=== PATIENT | female | born 1935 | race Caucasian/White ===

== ENCOUNTER 2018-09-22 16:39 | Observation (INO) | payer OTHER ==
--- NOTE | 2018-09-22 17:49 | PDOC ---
History of Present Illness - General Chief Complaint: Pain Stated Complaint: JAW PAIN Time Seen by Provider: 09/22/18 17:10 History Source: Patient Exam Limitations: No Limitations - History of Present Illness Initial Comments: 09/22/18 17:43 83 yo female pmh of CABG (2010 at [place]), HLD, aortic sclerosis, CKD stage 3 , DM, TIA, and recently diagnosed gout presents to the ED with left jaw pain. 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 Pt believes pain today is related to starting colchicine. Jaw pain is intermittent described as squeezing sensation lasting less than 5 seconds without radiation and is non exertional. Denies CP, SOB, palpitations, back pain, N/V/F/C, diaphoresis. Pt went to Urgent care today for the left jaw pain and sent to the ED due to significant heart hx. Past History - Past Medical History Allergies/Adverse Reactions: Allergies Allergy/AdvReac Type Severity Reaction Status Date / Time amoxicillin Allergy Verified 09/22/18 16:59 diltiazem Allergy Verified 09/22/18 16:59 fexofenadine [From Martina] Allergy Verified 09/22/18 16:59 loperamide Allergy Verified 09/22/18 16:59 [From Imodium Advanced] nifedipine Allergy Verified 09/22/18 16:59 simethicone Allergy Verified 09/22/18 16:59 [From Imodium Advanced] diabetic tussin Allergy Uncoded 09/22/18 16:59 Home Medications: Ambulatory Orders Amlodipine Besylate [Norvasc -] 5 mg PO DAILY 09/22/18 Aspirin Coated [Ecotrin -] 81 mg PO DAILY 09/22/18 Atorvastatin Ca [Lipitor] 80 mg PO HS 09/22/18 Benazepril HCl [Lotensin] 40 mg PO DAILY 09/22/18 Calcium Carbonate/Vitamin D3 [Calcium 600 + D3 Softgel] 1 each PO BID 09/22/18 Cholecalciferol (Vitamin D3) [Vitamin D3 -] 2,000 unit PO DAILY 09/22/18 Ezetimibe [Zetia -] 10 mg PO DAILY 09/22/18 Flaxseed Oil [Linseed Oil] 1 ml MC AM 09/22/18 Lutein 20 mg PO DAILY 09/22/18 Metoprolol Succinate [Toprol Xl -] 100 mg PO DAILY 09/22/18 Potassium Chloride [Klor-Con 10] 10 meq PO BID 09/22/18 Triamterene/Hydrochlorothiazid [Triamterene-Hctz 37.5-25 mg Cp] 1 each PO DAILY 09/22/18 Cardiac Disorders: Yes (aortic stenosis,carotid stenosis,) COPD: No Diabetes: Yes (no meds) HTN: Yes Other medical history: P.E. 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/06, pulm HTN, - Surgical History Abdominal Surgery: Yes (ventral hernia repair) Cardiac Surgery: Yes (triple bypass 11/29/10) - Suicide/Smoking/Psychosocial Hx Smoking History: Former smoker Have you smoked in the past 12 months: No Information on smoking cessation initiated: No Hx Alcohol Use: No Drug/Substance Use Hx: No Review of Systems - Review of Systems Constitutional: No: Chills, Fever HEENTM: Yes: Other (left jaw pain) Respiratory: No: Shortness of Breath, Wheezing Cardiac (ROS): No: Chest Pain, Lightheadedness, Palpitations, Syncope ABD/GI: No: Constipated, Diarrhea, Nausea, Vomiting : No: Burning, Dysuria, Frequency, Flank Pain Musculoskeletal: No: Back Pain Integumentary: No: Rash Neurological: No: Numbness, Paresthesia, Weakness *Physical Exam - Vital Signs Last Vital Signs Temp Pulse Resp BP Pulse Ox 98.8 F 54 L 18 145/80 99 09/22/18 16:59 09/22/18 16:59 09/22/18 16:59 09/22/18 16:59 09/22/18 16:59 - Physical Exam General Appearance: Yes: Nourished, Appropriately Dressed. No: Apparent Distress HEENT: positive: EOMI, RUTH, Other (no erythema, swelling or tenderness to palpation of left jaw or left ear. no abcess or signs of infection in the mouth. ) Neck: positive: Supple. negative: Lymphadenopathy (R), Lymphadenopathy (L) Respiratory/Chest: positive: Lungs Clear, Normal Breath Sounds. negative: Respiratory Distress, Accessory Muscle Use, Crackles, Rales, Rhonchi, Stridor, Wheezing Cardiovascular: positive: Regular Rhythm, S1, S2, Murmur (systolic blowing), Bradycardia (beta blockers). negative: Edema, JVD Vascular Pulses: Dorsalis-Pedis (R): 4+, Doralis-Pedis (L): 4+ Gastrointestinal/Abdominal: positive: Normal Bowel Sounds, Flat, Soft. negative : Pulsatile Mass, Distended, Guarding, Rebound, Tenderness Extremity: positive: Normal Capillary Refill, Normal Inspection, Normal Range of Motion. negative: Swelling, Calf Tenderness Integumentary: positive: Normal Color, Dry, Warm. 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, Fully Oriented, Alert, Normal Mood/ Affect, Normal Response, Motor Strength 5/5 Moderate Sedation - Procedure Monitoring Vital Signs: Procedure Monitoring Vital Signs Temperature 98.8 F 09/22/18 16:59 Pulse Rate 54 L 09/22/18 16:59 Respiratory Rate 18 09/22/18 16:59 Blood Pressure 145/80 09/22/18 16:59 O2 Sat by Pulse Oximetry (%) 99 09/22/18 16:59 Heart Score/ECG Review - History History: Slightly suspicious - Electrocardiogram EKG: Non specific repolarization disturbance - Age Age: >/= 65 - Risk Factors Risk Factors Heart Score: Yes Hx Hypercholesterolemia, Yes Hx Diabetes, Yes Positive family hx of cardiac disease, Yes Hx Obesity Based on the list above the patient has:: >/=3 risk factors or Hx atherosclerotic disease - Troponin Troponin: </= normal limit - Score Heart Score - Total: 5 - ECG Intrepretation Rhythm: Regular Rhythm - [place]: Normal ED Treatment Course - LABORATORY CBC & Chemistry Diagram: 09/22/18 18:15 09/22/18 18:15 Medical Decision Making - Medical Decision Making 09/22/18 18:59 83 yo female with with significant cardiac risk factors, HEART score 5, presents to the ED for left jaw pain that began this am. Denies CP, palpitations, SOB, diaphoresis or radiation of pain No swelling, erythema or warmth of the left jaw, no signs of infection in the mouth. No pain when talking or with palpation to affected area 1st vist to 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. EKG: no ST changes 1st trop neg Pt resting comfortably, NAD, will be admitted for ACS rule out S/O to night team *DC/Admit/Observation/Transfer Diagnosis at time of Disposition: Jaw pain - Referrals Referrals: Tristan Trent [Primary Care Provider] - - Patient Instructions - Post Discharge Activity
--- NOTE | 2018-09-22 18:00 | PDOC ---
Attending Attestation - [facility] HPI: 09/22/18 20:30 The patient is a 83 year old female, with a significant past medical history of CABG (2010 at [place]), HLD, aortic sclerosis, CKD stage 3, DM, TIA, and recently diagnosed gout who presents to the emergency department with one day of intermittent, non-radiating, left jaw pain. The patient describes the jaw pain as a sharp squeeze. The patient notes she was visiting her girlfriends this weekend when she noticed her right toe swell. The patient notes she went to her environmental engineer scientist yesterday for right toe pain, and was diagnosed with gout (on colchicine). The patient took her first doze last night ( 10pm) and her second doze this morning (9am), and shortly after she noted left jaw pain. Patient notes she went to [facility] today and was promoted to come the the ED for further evaluation due to her prior heart history. The patient notes her last stress test was 6/7 months ago. The patient denies chest pain, shortness of breath, headache or dizziness. The patient denies fever, chills, nausea, vomit, diarrhea or constipation. The patient denies dysuria, frequency, urgency or hematuria. Allergies: Amoxicillin, diltiazem, fexofenadine, loperamide, nifedipine Past surgical history: ventral hernia repair, triple bypass( 11/29/10) Social history: None reported PCP:Dr. Trent - Physicial Exam PE: 09/22/18 20:32 GENERAL: Awake, alert, and fully oriented, in no acute distress HEAD: No signs of trauma EYES: PERRLA, EOMI, sclera anicteric, conjunctiva clear ENT: Auricles normal inspection, hearing grossly normal, nares patent, oropharynx clear without exudates. Moist mucosa NECK: Normal ROM, supple, no lymphadenopathy, JVD, or masses LUNGS: Breath sounds equal, clear to auscultation bilaterally. No wheezes, and no crackles HEART: Regular rate and rhythm, normal S1 and S2, no murmurs, rubs or gallops ABDOMEN: Soft, nontender, normoactive bowel sounds. No guarding, no rebound. No masses EXTREMITIES: (+) Right leg erythemis of the first metatarsal warm to touch. Normal range of motion, no edema. No clubbing or cyanosis. No cords, erythema, or tenderness NEUROLOGICAL: Cranial nerves II through XII grossly intact. Normal speech, normal gait SKIN: Warm, Dry, normal turgor, no rashes or lesions noted. <Cathleen Byrne - Last Filed: 09/22/18 20:30> - Resident Resident Name: Juan Major - ED Attending Attestation I have performed the following: I have examined & evaluated the patient, The case was reviewed & discussed with the resident, I agree w/resident's findings & plan, Exceptions are as noted - Medical Decision Making 09/22/18 18:00 I, Dr. Ailyn Mckeon DO, attest that this document has been prepared under my direction and personally reviewed by me in its entirety. I further attest, that it accurately reflects all work, treatment, procedures and medical decision -making performed by me. 09/22/18 18:52 83yo female with hx of CABG with multiple episodes of jaw pain -started colcrys yesterday -concern for atypical acs vs adverse drug reactoin -given hx of cabg x 3 -will send trops, ekg, cxr, labs -will give asa -will place in obs for cardiac eval and tele monitoring 09/22/18 19:52 cxr clear trop negative 09/22/18 19:53 microblog sent to [facility] for tele obs 09/22/18 22:33 case discussed with [facility] who accepts pt to service <Ailyn Mckeon - Last Filed: 09/22/18 22:33> *DC/Admit/Observation/Transfer - Attestations Scribe Attestion: 09/22/18 20:32 Documentation prepared by Cathleen Byrne, acting as medical data analyst for Ailyn Mckeon DO, MD <Cathleen Byrne - Last Filed: 09/22/18 20:30> - Discharge Dispostion Decision to Admit order: Yes <Ailyn Mckeon - Last Filed: 09/22/18 22:33> Diagnosis at time of Disposition: Jaw pain - Discharge Dispostion Condition at time of disposition: Fair - Referrals Referrals: Tristan Trent [Primary Care Provider] - - Patient Instructions - Post Discharge Activity Heart Score/ECG Review - ECG Intrepretation Comment:: 09/22/18 18:23 sinus juan at 54, l axis deviation, q waves septally, no acute st/t wave findings <Ailyn Mckeon - Last Filed: 09/22/18 22:33>
[2018-09-22 18:24] LABS: BASO % 0.6 % (0-2.0); EOS % 0.8 % (0-4.5); HEMATOCRIT 41.4 % (32.4-45.2); HEMOGLOBIN 14.2 GM/dL (10.7-15.3); LYMPH % 31.8 % (8-40); MCH 32.7 pg (25.7-33.7); MCHC 34.3 g/dl (32.0-36.0); MEAN CELL VOLUME 95.3 fl (80-96); MEAN PLT VOLUME 11.4 fl (7.5-11.1); MONO % 7.1 % (3.8-10.2); NEUT % 59.7 % (42.8-82.8); RBC 4.34 M/mm3 (3.60-5.2); RDW 15.5 % (11.6-15.6); WHITE BLOOD COUNT 6.6 K/mm3 (4.0-10.0)
[2018-09-22] MEDS ORDERED: ASPIRIN 81 MG CHEWABLE TABLETS PO ONE (18:25)
[2018-09-22] MEDS ORDERED: ASPIRIN 81 MG CHEWABLE TABLETS ONE (18:28)
[2018-09-22 18:58] LABS: ALBUMIN 3.9 g/dl (3.4-5.0); ALK PHOS 115 U/L (45-117); ANION GAP 7 MMOL/L (8-16); BILIRUBIN,TOTAL 0.5 mg/dL (0.2-1); BLOOD UREA NITROGEN 33 mg/dL (7-18); CALCIUM 9.6 mg/dL (8.5-10.1); CHLORIDE 106 mmol/L (98-107); CO2 26 mmol/L (21-32); CREATININE 1.2 mg/dL (0.55-1.3); GLUCOSE,RANDOM 106 mg/dL (74-106); POTASSIUM 4.4 mmol/L (3.5-5.1); SGOT/AST 19 U/L (15-37); SGPT/ALT 27 U/L (13-61); SODIUM 139 mmol/L (136-145); URIC ACID 7.7 mg/dL (2.6-7.2)
[2018-09-22 19:08] LABS: PLATELET COUNT 132 K/MM3 (134-434); PLATELET ESTIMATE DECREASED
--- NOTE | 2018-09-22 21:15 | PN ---
Teaching Attending Note Name of Resident: Laine Ruby ATTENDING PHYSICIAN STATEMENT I saw and evaluated the patient. I reviewed the resident's note and discussed the case with the resident. I agree with the resident's findings and plan as documented. SUBJECTIVE: Patient is an 83 year old woman with a PMH of CABG (2010 at [place]), HLD, aortic sclerosis, CKD stage 3?, NIDDM, TIA, ventral hernia repair, and recently diagnosed gout who presents to the ER with one day of intermittent, non- radiating, left jaw pain. She describes the jaw pain as a sharp squeeze. The patient notes she was visiting her girlfriends this weekend when she noticed her right toe swell. 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 The patient took her first dose last night and her second dose this morning, and shortly after she noted left jaw pain. Patient notes she went to [facility] today and was told to come the the ER for further evaluation due to her history of CAD. The patient notes her last stress test was 6/7 months ago. She chest pain, shortness of breath, headache, dizziness, change in bowel habit, fever, chills, nausea, vomit, dysuria, frequency, urgency or hematuria. OBJECTIVE: Alert Vital Signs Period Temp Pulse Resp BP Sys/Coley Pulse Ox Last 24 Hr 98.8 F 54 18 145/80 99 HEENT: No Jaundice, eye redness or discharge, PERRLA, EOMI. Normocephalic, atraumatic. External ears are normal and hearing is grossly intact. No nasal discharge. Neck: Supple, nontender. No palpable adenopathy or thyromegaly. No JVD Chest: Good effort. Clear to auscultation and percussion. Heart: Regular. No S3, rub or murmur Abdomen: Not distended, soft, nontender and no HSM. No rebound or guarding. Normoactive bowel sounds. Ext: Peripheral pulses intact. No leg edema. Tender right big toe. Skin: Warm and dry. No petechiae, rash or ecchymosis. Neuro: Alert. Oriented x3. CN 2-12 grossly intact. Sensation grossly intact in all four extremities and DTR are symmetric. Home Medications Medication Instructions Recorded Amlodipine Besylate [Norvasc -] 5 mg PO DAILY 02/27/19 Aspirin Coated [Ecotrin -] 81 mg PO DAILY 09/22/18 Atorvastatin Ca [Lipitor] 80 mg PO HS 09/22/18 Benazepril HCl [Lotensin] 40 mg PO DAILY 09/22/18 Calcium Carbonate/Vitamin D3 1 each PO BID 09/22/18 [Calcium 600 + D3 Softgel] Cholecalciferol (Vitamin D3) 2,000 unit PO DAILY 09/22/18 [Vitamin D3 -] Ezetimibe [Zetia -] 10 mg PO DAILY 09/22/18 Flaxseed Oil [Linseed Oil] 1 ml MC AM 09/22/18 Lutein 20 mg PO DAILY 09/22/18 Metoprolol Succinate [Toprol Xl -] 100 mg PO DAILY 09/22/18 Potassium Chloride [Klor-Con 10] 10 meq PO BID 09/22/18 Triamterene/Hydrochlorothiazid 1 each PO DAILY 09/22/18 [Triamterene-Hctz 37.5-25 mg Cp] Abnormal Lab Results 09/22/18 09/22/18 18:15 18:15 Plt Count 132 L MPV 11.4 H Anion Gap 7 L BUN 33 H Uric Acid 7.7 H ASSESSMENT AND PLAN: 1. Rule out ACS - Initial troponin is negative and EKG shows bradycardia with nonspecific ST-T wave changes. Will admit to telemetry to rule out ACS. Continue treatment for gout and monitor platelets. Unlikely that colchicine precipitated ACS. If ?gout pain persists, will give steroids, in view of elevated BUN (?mild LYNDSEY). No obvious cause for low platelets. 2. DM Will implement sliding scale insulin regimen. Provide comprehensive diabetes care with patient teaching and counseling about the importance of adherence to prescribed diabetes regimen, euglycemia, eye care and foot care. 3. Morbid obesity - Will provide patient all the necessary assistance, counseling and positive reinforcement to facilitate weight loss. 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 4. Restart outpatient antihypertensive drugs and revise regimen to ensure smooth [id number] good BP control. Nonpharmacologic measures to control hypertension like weight loss, salt restriction and exercise discussed. 5. DVT prophylaxis - Heparin 5000u sq tid. 6. Advance directives - Full code
--- NOTE | 2018-09-22 22:30 | HP ---
CHIEF COMPLAINT: jaw pain PCP: Dr. Trent HISTORY OF PRESENT ILLNESS: Patient is an 83 yo F with a PMHx HLD, DM, TIA (15 years ago), Gout, CABG (2010) , presented because of 8, non-radiating, jaw pain that started this morning around 9 am. She said she had just taken her colchicine and the pain started a few minutes after. She can't describe the pain, She said this never happened to her before. She denies chest pain and chest discomfort. She said she has not had any chest discomfort or pain since her CABG. She said her last echo was in early 2017 and it was normal. Her last nuclear stress test was 2 years ago which was also normal. Her junior buyer is Dr. Arjun Wong from [facility]. She currently denies chest pain, headache, nausea, vomiting, sob, urinary symptoms, dizziness, LOC. ER course was notable for: (1) ASA 81mg Recent Travel: denies PAST MEDICAL HISTORY: per HPI Social History: Smoking: former smoker 30 years ago Alcohol: denies Drugs: denies Family History: Allergies amoxicillin Allergy (Verified 09/22/18 16:59) diltiazem Allergy (Verified 09/22/18 16:59) fexofenadine [From Martina] Allergy (Verified 09/22/18 16:59) loperamide [From Imodium Advanced] Allergy (Verified 09/22/18 16:59) nifedipine Allergy (Verified 09/22/18 16:59) simethicone [From Imodium Advanced] Allergy (Verified 09/22/18 16:59) diabetic tussin Allergy (Uncoded 09/22/18 16:59) HOME MEDICATIONS: Home Medications Medication Instructions Recorded Amlodipine Besylate [Norvasc -] 5 mg PO DAILY 09/22/18 Aspirin Coated [Ecotrin -] 81 mg PO DAILY 09/22/18 Atorvastatin Ca [Lipitor] 80 mg PO HS 09/22/18 Benazepril HCl [Lotensin] 40 mg PO DAILY 09/22/18 Calcium Carbonate/Vitamin D3 1 each PO BID 09/22/18 [Calcium 600 + D3 Softgel] Cholecalciferol (Vitamin D3) 2,000 unit PO DAILY 09/22/18 [Vitamin D3 -] Ezetimibe [Zetia -] 10 mg PO DAILY 09/22/18 Flaxseed Oil [Linseed Oil] 1 ml MC AM 09/22/18 Lutein 20 mg PO DAILY 09/22/18 Metoprolol Succinate [Toprol Xl -] 100 mg PO DAILY 09/22/18 Potassium Chloride [Klor-Con 10] 10 meq PO BID 09/22/18 Triamterene/Hydrochlorothiazid 1 each PO DAILY 09/22/18 [Triamterene-Hctz 37.5-25 mg Cp] REVIEW OF SYSTEMS CONSTITUTIONAL: Absent: fever, chills, diaphoresis, generalized weakness, malaise, loss of appetite, weight change HEENT: Absent: rhinorrhea, nasal congestion, throat pain, throat swelling, difficulty swallowing, mouth swelling, ear pain, eye pain, visual changes CARDIOVASCULAR: Absent: chest pain, syncope, palpitations, irregular heart rate, lightheadedness , peripheral edema RESPIRATORY: Absent: cough, shortness of breath, dyspnea with exertion, orthopnea, wheezing, stridor, hemoptysis GASTROINTESTINAL: Absent: abdominal pain, abdominal distension, nausea, vomiting, diarrhea, constipation, melena, hematochezia GENITOURINARY: Absent: dysuria, frequency, urgency, hesitancy, hematuria, flank pain, genital pain MUSCULOSKELETAL: Absent: myalgia, arthralgia, joint swelling, back pain, neck pain SKIN: Absent: rash, itching, pallor HEMATOLOGIC/IMMUNOLOGIC: Absent: easy bleeding, easy bruising, lymphadenopathy, frequent infections ENDOCRINE: Absent: unexplained weight gain, unexplained weight loss, heat intolerance, cold intolerance NEUROLOGIC: Absent: headache, focal weakness or paresthesias, dizziness, unsteady gait, seizure, mental status changes, bladder or bowel incontinence PSYCHIATRIC: Absent: anxiety, depression, suicidal or homicidal ideation, hallucinations. PHYSICAL EXAMINATION Vital Signs - 24 hr 09/22/18 16:59 Temperature 98.8 F Pulse Rate 54 L Respiratory 18 Rate Blood Pressure 145/80 O2 Sat by Pulse 99 Oximetry (%) GENERAL: Awake, alert, and fully oriented, in no acute distress. HEAD: Normal with no signs of trauma. EYES: extraocular movements intact, sclera anicteric, conjunctiva clear. No lid lag. EARS, NOSE, THROAT:oropharynx clear without exudates. Moist mucous membranes. NECK: Normal range of motion, supple without lymphadenopathy, JVD, or masses. LUNGS: Breath sounds equal, clear to auscultation bilaterally. No wheezes, and no crackles. HEART: Regular rate and rhythm, normal S1 and S2 without murmur, rub or gallop. ABDOMEN: Soft, nontender, not distended, normoactive bowel sounds, no guarding, no rebound, no masses. LOWER EXTREMITIES: 2+ pulses, warm, well-perfused. No calf tenderness. No peripheral edema. NEUROLOGICAL: Cranial nerves II-XII intact. Normal speech. Normal gait. PSYCHIATRIC: Cooperative. Good eye contact. Appropriate mood and affect. SKIN: Warm, dry, normal turgor, no rashes or lesions noted, normal capillary refill. Laboratory Results - last 24 hr 09/22/18 09/22/18 18:15 18:15 WBC 6.6 RBC 4.34 Hgb 14.2 Hct 41.4 MCV 95.3 MCH 32.7 MCHC 34.3 RDW 15.5 Plt Count 132 L MPV 11.4 H Absolute Neuts (auto) 3.9 Neutrophils % 59.7 Lymphocytes % 31.8 Monocytes % 7.1 Eosinophils % 0.8 Basophils % 0.6 Nucleated RBC % 0 Platelet Estimate Decreased Platelet Comment Rare giant plts Sodium 139 Potassium 4.4 Chloride 106 Carbon Dioxide 26 Anion Gap 7 L BUN 33 H Creatinine 1.2 Creat Clearance w eGFR 43.01 Random Glucose 106 Uric Acid 7.7 H Calcium 9.6 Total Bilirubin 0.5 AST 19 ALT 27 Alkaline Phosphatase 115 Creatine Kinase 105 Troponin I < 0.02 Total Protein 8.0 Albumin 3.9 ASSESSMENT/PLAN: 83 yo F with a PMHx HLD, DM, TIA (15 years ago), Gout, CABG (2010), presented because of 03/05, non-radiating, jaw pain #Jaw Claudication -R/O ACS, ?TMJ, -Echo -1st set Trop neg -Tele monitoring -consider cardio consult -Lipid panel #DM -Says she is not diabetic anymore -not on any meds at home -Hgb A1c 6.5 -ISS -BGm #HTN/CAD -cont home meds -cont. ASA #Gout -hold colchicine because patient thinks it is cause of jaw pain. -talk to patient in AM and see if she wants to cont. it #DVT -hep sq dispo: obs-tele Visit type - Emergency Visit Emergency Visit: Yes ED Registration Date: 09/22/18 Care time: The patient presented to the Emergency Department on the above date and was hospitalized for further evaluation of their emergent condition. - New Patient This patient is new to me today: Yes Date on this admission: 09/24/18 - Critical Care Critical Care patient: No
[2018-09-23 04:23] VITALS: BMI 28.2
[2018-09-23] MEDS: HEPARIN NA (PORCINE) 5,000 UNITS/ML 1ML VIAL SQ SCH ×2 (06:11→14:17)
[2018-09-23] MEDS: INSULIN SLIDING SCALE (NOVOLOG) 1 VIAL SQ SCH ×2 (06:11→12:08)
[2018-09-23 06:33] VITALS: PULSE 50
[2018-09-23 06:38] LABS: BASO % 0.6 % (0-2.0); EOS % 2.2 % (0-4.5); HEMATOCRIT 36.2 % (32.4-45.2); HEMOGLOBIN 12.2 GM/dL (10.7-15.3); LYMPH % 41.4 % (8-40); MCH 31.9 pg (25.7-33.7); MCHC 33.7 g/dl (32.0-36.0); MEAN CELL VOLUME 94.5 fl (80-96); MEAN PLT VOLUME 11.8 fl (7.5-11.1); MONO % 8.4 % (3.8-10.2); NEUT % 47.4 % (42.8-82.8); PLATELET COUNT 124 K/MM3 (134-434); RBC 3.83 M/mm3 (3.60-5.2); WHITE BLOOD COUNT 5.4 K/mm3 (4.0-10.0)
[2018-09-23] MEDS ORDERED: INSULIN SLIDING SCALE (NOVOLOG) 1 VIAL SQ SCH (07:00)
[2018-09-23 07:28] LABS: ALBUMIN 3.2 g/dl (3.4-5.0); ALK PHOS 92 U/L (45-117); ANION GAP 7 MMOL/L (8-16); BILIRUBIN,TOTAL 0.6 mg/dL (0.2-1); BLOOD UREA NITROGEN 30 mg/dL (7-18); CALCIUM 8.9 mg/dL (8.5-10.1); CHLORIDE 110 mmol/L (98-107); CHOLESTEROL 129 mg/dL (50-200); CO2 23 mmol/L (21-32); GLUCOSE,RANDOM 88 mg/dL (74-106); HDL CHOLESTEROL 44 mg/dL (40-60); MAGNESIUM 1.9 mg/dL (1.8-2.4); PHOSPHOROUS 4.2 mg/dL (2.5-4.9); SGOT/AST 22 U/L (15-37); SGPT/ALT 27 U/L (13-61); SODIUM 140 mmol/L (136-145); TOT PROT 6.6 g/dl (6.4-8.2); TRIGLYCERIDES 139 mg/dL (0-150)
[2018-09-23 08:20] LABS: INR 1.05 (0.83-1.09); PROTHROMBIN TIME (PATIENT) 12.4 SEC (9.7-13.0)
[2018-09-23] MEDS ORDERED: PT OWN MED DRAWER 7, Y5N ONE (09:36)
[2018-09-23] MEDS ORDERED: amLODIPine BESYLATE 5 MG TABLET (FP) PO SCH (10:00)
[2018-09-23] MEDS ORDERED: EZETIMIBE 10 MG TABLET (FP) PO SCH (10:00)
[2018-09-23] MEDS ORDERED: TRIAMTERENE AND HCTZ - 37.5 MG/25 MG CAPSULE PO SCH (10:00)
[2018-09-23] MEDS ORDERED: LISINOPRIL 20 MG TABLET (FP) PO SCH (10:00)
[2018-09-23] MEDS ORDERED: ASPIRIN COATED 81 MG TABLET.EC PO SCH (10:00)
[2018-09-23 10:06] VITALS: BP 160/70; TEMP 98
--- NOTE | 2018-09-23 12:31 | ECHO ---
Name: FERNANDO MONTOYA Exam:Adult Echocardiogram Study Date: 09/23/2018 07:43 AM Age: 83 yrs Reason For Study: CHEST PAIN Height: 48 in Weight: 135 lb BSA: 1.3 m2 MMode/2D Measurements & Calculations IVSd: 0.57 cm Ao root diam: 3.4 cm LVIDd: 5.2 cm LA dimension: 4.7 cm LVIDs: 3.7 cm ACS: 0.87 cm LVPWd: 0.64 cm IVSs: 0.81 cm LVPWs: 1.0 cm EDV(Teich): 129.7 ml ESV(Teich): 59.4 ml LVOT diam: 2.0 cm Doppler Measurements & Calculations MV E max fabiano: 85.6 cm/sec Ao V2 max: 180.1 cm/sec MV A max fabiano: 84.7 cm/sec Ao max P.0 mmHg MV E/A: 1.0 Ao V2 mean: 137.8 cm/sec Ao mean P.0 mmHg Ao V2 VTI: 52.5 cm MARIAMA(I,D): 1.6 cm2 MARIAMA(V,D): 1.2 cm2 LV V1 max P.6 mmHg SV(LVOT): 82.8 ml LV V1 mean P.1 mmHg LV V1 max: 73.0 cm/sec LV V1 mean: 69.1 cm/sec LV V1 VTI: 27.0 cm TR max fabiano: 290.1 cm/sec PI end-d fabiano: 73.3 cm/sec TR max P.7 mmHg Med Peak E' Fabiano: 4.5 cm/sec Med E/e': 19.0 Lat Peak E' Fabiano: 8.0 cm/sec Lat E/e': 10.7 Procedure A complete two-dimensional transthoracic echocardiogram was performed (2D, M-mode, Doppler and color flow Doppler). Left Ventricle The left ventricular size, thickness and function are normal. The left ventricular ejection fraction is normal. Ejection Fraction = 55-60%. The left ventricular wall motion is normal. Right Ventricle The right ventricle is normal in size and function. Atria The left atrium is mildly dilated. The right atrium is mildly dilated. Mitral Valve There is no mitral regurgitation noted. Tricuspid Valve There is mild to moderate tricuspid regurgitation. Right ventricular systolic pressure is normal. Aortic Valve Mild valvular aortic stenosis. No aortic regurgitation is present. Pulmonic Valve There is no pulmonic valvular regurgitation. Great Vessels The aortic root is normal size. Pericardium/Pleura There is no pericardial effusion. Interpretation Summary The left ventricular size, thickness and function are normal The right ventricle is normal in size and function. The left atrium is mildly dilated. The right atrium is mildly dilated. There is mild to moderate tricuspid regurgitation. Mild valvular aortic stenosis. MD To Pérez 09/23/2018 12:31 PM
--- NOTE | 2018-09-23 14:33 | DS ---
Physical Exam: SUBJECTIVE: Patient seen and examined. no repeat episodes since arrival in the ER. had different symptoms in 2010 when she had heart attack. denies CP, SOB, fever, chills, N/V/?CD, palpitations, numbnes/tingling down the arms OBJECTIVE: Vital Signs Period Temp Pulse Resp BP Sys/Coley Pulse Ox Last 24 Hr 97.7 F-98.8 F 48-58 18-18 123-160/48-80 96-99 PHYSICAL EXAM GENERAL: The patient is awake, alert, and fully oriented, in no acute distress. HEAD: Normal with no signs of trauma. EYES: PERRL, extraocular movements intact, sclera anicteric, conjunctiva clear. ENT: Ears normal, nares patent, oropharynx clear without exudates, moist mucous membranes. NECK: Trachea midline, full range of motion, supple. LUNGS: Breath sounds equal, clear to auscultation bilaterally, no wheezes, no crackles, no accessory muscle use. HEART: Regular rate and rhythm, S1, S2 without murmur, rub or gallop. ABDOMEN: Soft, nontender, nondistended, normoactive bowel sounds, no guarding, no rebound, no hepatosplenomegaly, no masses. EXTREMITIES: 2+ pulses, warm, well-perfused, no edema. NEUROLOGICAL: Cranial nerves II through XII grossly intact. Normal speech, gait not observed. PSYCH: Normal mood, normal affect. SKIN: Warm, dry, normal turgor, no rashes or lesions noted. LABS Laboratory Results - last 24 hr 09/22/18 09/22/18 09/22/18 18:15 18:15 22:55 WBC 6.6 RBC 4.34 Hgb 14.2 Hct 41.4 MCV 95.3 MCH 32.7 MCHC 34.3 RDW 15.5 Plt Count 132 L MPV 11.4 H Absolute Neuts (auto) 3.9 Neutrophils % 59.7 Lymphocytes % 31.8 Monocytes % 7.1 Eosinophils % 0.8 Basophils % 0.6 Nucleated RBC % 0 Platelet Estimate Decreased Platelet Comment Rare giant plts PT with INR INR Sodium 139 Potassium 4.4 Chloride 106 Carbon Dioxide 26 Anion Gap 7 L BUN 33 H Creatinine 1.2 Creat Clearance w eGFR 43.01 POC Glucometer Random Glucose 106 Hemoglobin A1c % 6.5 H Uric Acid 7.7 H Calcium 9.6 Phosphorus Magnesium Total Bilirubin 0.5 AST 19 ALT 27 Alkaline Phosphatase 115 Creatine Kinase 105 Troponin I < 0.02 Total Protein 8.0 Albumin 3.9 Triglycerides Cholesterol Total LDL Cholesterol HDL Cholesterol 09/23/18 09/23/18 09/23/18 04:23 05:30 05:30 WBC 5.4 RBC 3.83 Hgb 12.2 Hct 36.2 MCV 94.5 MCH 31.9 MCHC 33.7 RDW 15.0 Plt Count 124 L MPV 11.8 H Absolute Neuts (auto) 2.6 Neutrophils % 47.4 D Lymphocytes % 41.4 H D Monocytes % 8.4 Eosinophils % 2.2 D Basophils % 0.6 Nucleated RBC % 0 Platelet Estimate Platelet Comment PT with INR 12.40 INR 1.05 Sodium Potassium Chloride Carbon Dioxide Anion Gap BUN Creatinine Creat Clearance w eGFR POC Glucometer Random Glucose Hemoglobin A1c % Uric Acid Calcium Phosphorus Magnesium Total Bilirubin AST ALT Alkaline Phosphatase Creatine Kinase Troponin I 0.02 Total Protein Albumin Triglycerides Cholesterol Total LDL Cholesterol HDL Cholesterol 09/23/18 09/23/18 09/23/18 05:30 05:30 05:30 WBC RBC Hgb Hct MCV MCH MCHC RDW Plt Count MPV Absolute Neuts (auto) Neutrophils % Lymphocytes % Monocytes % Eosinophils % Basophils % Nucleated RBC % Platelet Estimate Platelet Comment PT with INR INR Sodium 140 Potassium 4.0 Chloride 110 H Carbon Dioxide 23 Anion Gap 7 L BUN 30 H Creatinine 1.0 Creat Clearance w eGFR 53.08 POC Glucometer Random Glucose 88 Hemoglobin A1c % Uric Acid Calcium 8.9 Phosphorus 4.2 Magnesium 1.9 Total Bilirubin 0.6 AST 22 ALT 27 Alkaline Phosphatase 92 Creatine Kinase 87 Troponin I < 0.02 Total Protein 6.6 Albumin 3.2 L Triglycerides 139 Cancelled Cholesterol 129 Cancelled Total LDL Cholesterol 65 Cancelled HDL Cholesterol 44 Cancelled 09/23/18 09/23/18 06:07 11:46 WBC RBC Hgb Hct MCV MCH MCHC RDW Plt Count MPV Absolute Neuts (auto) Neutrophils % Lymphocytes % Monocytes % Eosinophils % Basophils % Nucleated RBC % Platelet Estimate Platelet Comment PT with INR INR Sodium Potassium Chloride Carbon Dioxide Anion Gap BUN Creatinine Creat Clearance w eGFR POC Glucometer 87 128 Random Glucose Hemoglobin A1c % Uric Acid Calcium Phosphorus Magnesium Total Bilirubin AST ALT Alkaline Phosphatase Creatine Kinase Troponin I Total Protein Albumin Triglycerides Cholesterol Total LDL Cholesterol HDL Cholesterol HOSPITAL COURSE: Date of Admission:09/22/18 Date of Discharge: 09/23/18 Admitting diagnosis: R/O ACS Pre hospital course 83 yo F with a PMHx HLD, DM, TIA (15 years ago), Gout, CABG (2010), presented because of 8/10, non-radiating, jaw pain that started this morning around 9 am. She said she had just taken her colchicine and the pain started a few minutes after. She can't describe the pain, She said this never happened to her before. She denies chest pain and chest discomfort. She said she has not had any chest discomfort or pain since her CABG. She said her last echo was in early 2017 and it was normal. Her last nuclear stress test was 2 years ago which was also normal. Her estimator and drafter is Dr. Arjun Wong from [facility]. She currently denies chest pain, headache, nausea, vomiting, sob, urinary symptoms, dizziness , LOC. Subsequent hospital course observed on tele. no events on monitor. Cardiac enzymes neg x3. echo done with no WMA. spoke with Dr Wong (pts estimator and drafter) colleague, Dr Monaco. discussed case and results. states she has had 2 negative NMST 2013 and 2015. agrees to having pt d/c home and follow up on 09/30/18 with her estimator and drafter for stress test. plan d/w with patient, boyfriend and son present. stressed importance of returning if symptoms return and to keep appointment. Minutes to complete discharge: 40 Discharge Summary Reason For Visit: JAW PAIN Current Active Problems CAD (coronary artery disease) of artery bypass graft (Acute) CKD (chronic kidney disease) (Chronic) Diabetes (Chronic) Jaw pain (Chronic) TIA (transient ischemic attack) (Chronic) Condition: Fair - Instructions Diet, Activity, Other Instructions: You came to the hospital and were observed overnight due to jaw pain which could be concerning for cardiac arrest. You were observed and all testing was negative. continue your home medications Follow up with your estimator and drafter on 09/30 for stress testing. Follow up with your primary care doctor 1 week If your symptoms return or if you develop chest pain or palpitations or if the pain starts radiating down your arms return to the hospital immediately Referrals: Tristan Trent [Primary Care Provider] - - Home Medications Comprehensive Discharge Medication List: Ambulatory Orders Amlodipine Besylate [Norvasc -] 5 mg PO DAILY 09/22/18 Aspirin Coated [Ecotrin -] 81 mg PO DAILY 09/22/18 Atorvastatin Ca [Lipitor] 80 mg PO HS 09/22/18 Benazepril HCl [Lotensin] 40 mg PO DAILY 09/22/18 Calcium Carbonate/Vitamin D3 [Calcium 600 + Vit D 400 Softgl] 1 each PO BID Cholecalciferol (Vitamin D3) [Vitamin D3 -] 2,000 unit PO DAILY 09/22/18 Ezetimibe [Zetia -] 10 mg PO DAILY 09/22/18 Flaxseed Oil [Linseed Oil] 1 ml MC AM 09/22/18 Lutein 20 mg PO DAILY 09/22/18 Metoprolol Succinate [Toprol XL -] 100 mg PO DAILY 09/22/18 Potassium Chloride [Klor-Con 10] 10 meq PO BID 09/22/18 Triamterene/Hydrochlorothiazid [Triamterene-Hctz 37.5-25 mg Cp] 1 each PO DAILY 09/22/18 This patient is new to me today: Yes Date on this admission: 09/23/18 Emergency Visit: Yes ED Registration Date: 09/22/18 Care time: The patient presented to the Emergency Department on the above date and was hospitalized for further evaluation of their emergent condition. Critical Care patient: No - Discharge Referral Referred to [facility] No
--- NOTE | 2018-09-23 16:57 | EKG ---
Test Reason : Blood Pressure : / mmHG Vent. Rate : 054 BPM Atrial Rate : 054 BPM P-R Int : 166 ms QRS Dur : 114 ms QT Int : 474 ms P-R-T Axes : 057 -50 037 degrees QTc Int : 449 ms SINUS BRADYCARDIA WITH MARKED SINUS ARRHYTHMIA LEFT AXIS DEVIATION MINIMAL VOLTAGE CRITERIA FOR LVH, MAY BE NORMAL VARIANT SEPTAL INFARCT , AGE UNDETERMINED T WAVE ABNORMALITY, CONSIDER ANTERIOR ISCHEMIA ABNORMAL ECG NO PREVIOUS ECGS AVAILABLE Confirmed by TOMAS FERRELL, ALESSANDRA ([id number]) on 09/23/2018 4:56:56 PM Referred By: Confirmed By:ALESSANDRA MARIN MD
[2018-09-23] MEDS ORDERED: ATORVASTATIN CA 80 MG TABLET (FP) PO SCH (22:00)
== END 2018-09-23 15:23 | disposition home or self-care (01) ==
LOC: JER 16:39 → JERBED 19:53 → J4W 09-23 02:03
PROVIDERS: ADMIT Internal Medicine; ATTEND Internal Medicine
DX: R68.84 Jaw pain (principal); M26.69 Other specified disorders of temporomandibular joint; E11.22 Type 2 diabetes mellitus with diabetic chronic kidney disease; I12.9 Hypertensive chronic kidney disease with stage 1 through stage 4 chronic kidney disease, or unspecified chronic kidney disease; N18.3 Chronic kidney disease, stage 3 (moderate); E78.5 Hyperlipidemia, unspecified; I35.8 Other nonrheumatic aortic valve disorders; M10.9 Gout, unspecified; I35.0 Nonrheumatic aortic (valve) stenosis; I65.29 Occlusion and stenosis of unspecified carotid artery; I25.810 Atherosclerosis of coronary artery bypass graft(s) without angina pectoris; E66.01 Morbid (severe) obesity due to excess calories; Z68.28 Body mass index [BMI] 28.0-28.9, adult; Z87.891 Personal history of nicotine dependence; Z86.73 Personal history of transient ischemic attack (TIA), and cerebral infarction without residual deficits; Z95.1 Presence of aortocoronary bypass graft; Z88.1 Allergy status to other antibiotic agents; Z88.8 Allergy status to other drugs, medicaments and biological substances; Z79.82 Long term (current) use of aspirin
CPT/HCPCS: 36415; 71045-TC-FY; 80053; 80061; 82550; 82962; 83036; 83721; 83735; 84100; 84484; 84550; 85025; 85610; 93005; 93010; 93306-TC; 99285-25; G0378; J1644